=== PATIENT | female | born 1985 | race Caucasian/White ===

== ENCOUNTER 2016-08-16 11:16 | Emergency (ER) | payer OTHER ==
[~2016-08-16] VITALS: Ht 157.4 cm; Wt 61.2 kg
[~2016-08-16 11:16] MED LIST: AMOXICILLIN500 M2 PO; AMOXIL500 MG PO; AVPAK AZITHROM250 M1 PO; BACTRIM DS 8001 TA1 PO; CLARITIN10 MG PO; DEBROX15 ML OT; FLONASE0.05 MG/AC NS; MEDROL DOSEPAK4 MG PO; MIRALAX POWDER17 G1 PO; NEIGHBOR P PO; ROBITUSSIN-AC 160 ML PO; ZITHROMAX Z PA250 MG PO; ZOFRAN ODT4 MG SL; ZOFRAN4 MG PO
[2016-08-16 12:12] LABS: BASO % 0.1 % (0.0-1.0); EOS % 0.3 % (1.0-4.0); HEMATOCRIT 39.8 % (37.0-47.0); HEMOGLOBIN 14.1 g/dl (12.0-16.0); IG # 0.1 10*3/uL (0.0-0.1); LYMPH # 1.5 10*3/uL (1.3-4.4); MEAN CELL VOLUME 99.3 fl (81.0-99.0); MEAN CORPUSCULAR HGB 35.2 pg (27.0-31.0); MEAN CORPUSCULAR HGB CONC 35.4 g/dl (33.0-37.0); MEAN PLATELET VOLUME 10.5 fl (9.6-12.3); MONO # 0.7 10*3/uL (0.1-1.0); NEUT # 11.6 10*3/uL (2.3-7.9); NEUT % 83.1 % (47.0-73.0); PLATELET COUNT AUTOMATED 202 10*3/uL (130-400); RED BLOOD COUNT 4.01 10*6/uL (4.10-5.10); RED CELL DISTRI WIDTH 12.1 % (0-14.5)
[2016-08-16 12:29] LABS: ALBUMIN 3.5 gm/dl (3.1-4.5); ALKALINE PHOSPHATASE 64 U/L (45-117); BILIRUBIN, TOTAL 1.1 mg/dl (0.2-1.0); BUN 8 mg/dl (7-24); CARBON DIOXIDE 25 mmol/L (21-32); CHLORIDE 107 mmol/L (98-107); EST GLOM FILT AFRICAN AMERICAN > 60 ml/min; GLUCOSE 93 mg/dL (65-99); POTASSIUM 4.1 mmol/L (3.5-5.1); SGOT/AST 10 IU/L (3-35); SGPT/ALT 14 U/L (12-78); SODIUM 139 mmol/L (136-145); TOTAL PROTEIN 7.4 gm/dL (6.4-8.2)
[2016-08-16 13:04] LABS: BILIRUBIN NEGATIVE (NEGATIVE); BLOOD TRACE-LYSED (NEGATIVE); CLARITY CLEAR (CLEAR); COLOR YELLOW (YELLOW); GLUCOSE NEGATIVE (NEGATIVE); KETONE NEGATIVE (NEGATIVE); LEUKO ESTERASE 2+ (NEGATIVE); NITRITE NEGATIVE (NEGATIVE); PROTEIN NEGATIVE (NEGATIVE); SPECIFIC GRAVITY <= 1.005 (1.005-1.030); UROBILINOGEN 0.2 E.U./dl (0.2-1.0)
[2016-08-16 13:25] LABS: BACTERIA 1+; URINE REFLEX COMMENT YES (NO); WBC TNTC wbc/hpf (0-5)
[2016-08-16] MEDS ORDERED: PERCOCET 325 MG1 TA7 PO (15:55)
[2016-08-16] MEDS ORDERED: MACROBID100 M1 PO (15:55)
== END 2016-08-16 16:36 | disposition home or self-care (01) ==
LOC: ED 11:16
PROVIDERS: Emergency Medicine
DX: O23.41 Unspecified infection of urinary tract in pregnancy, first trimester (principal); F17.200 Nicotine dependence, unspecified, uncomplicated; Z3A.14 14 weeks gestation of pregnancy

== ENCOUNTER 2016-08-18 12:48 | Emergency (ER) | payer OTHER ==
[~2016-08-18] VITALS: Ht 157.4 cm; Wt 61.2 kg
== END 2016-08-18 14:46 | disposition home or self-care (01) ==
LOC: ED 12:48
DX: O03.9 Complete or unspecified spontaneous abortion without complication (principal); O09.899 Supervision of other high risk pregnancies, unspecified trimester; F17.200 Nicotine dependence, unspecified, uncomplicated

== ENCOUNTER → 2016-08-18 | Outpatient (CLI) | payer OTHER ==
[~2016-08-18] MED LIST changes: +MACROBID100 M1 PO; +PERCOCET 325 MG1 TA7 PO
== END | disposition home or self-care (01) ==
LOC: LAB 11:39
DX: O03.9 Complete or unspecified spontaneous abortion without complication (principal); Z3A.00 Weeks of gestation of pregnancy not specified

== ENCOUNTER → 2016-08-31 | Outpatient (CLI) | payer OTHER | END | disposition home or self-care (01) | LOC: US 14:52 | DX: O03.4 Incomplete spontaneous abortion without complication (principal); R10.31 Right lower quadrant pain; Z3A.00 Weeks of gestation of pregnancy not specified ==

== ENCOUNTER 2017-06-07 17:44 | Emergency (ER) | payer OTHER ==
[~2017-06-07] VITALS: Ht 157.4 cm; Wt 59.0 kg
[2017-06-07] MEDS ORDERED: ALLEGRA-D 24 H1 EACH PO (18:14)
[2017-06-07] MEDS ORDERED: FLONASE ALLERG9.9 ML NAS (18:14)
== END 2017-06-07 18:14 | disposition home or self-care (01) ==
LOC: ED 17:44
DX: J32.9 Chronic sinusitis, unspecified (principal); F17.200 Nicotine dependence, unspecified, uncomplicated

== ENCOUNTER 2017-08-13 17:30 | Emergency (ER) | payer OTHER ==
[~2017-08-13] VITALS: Wt 59.0 kg
[~2017-08-13 17:30] MED LIST changes: +ALLEGRA-D 24 H1 EACH PO; +FLONASE ALLERG9.9 ML NAS
[2017-08-13] MEDS ORDERED: TESSALON PERLE100 MG PO (18:25)
[2017-08-13] MEDS ORDERED: ZITHROMAX250 MG PO (18:25)
== END 2017-08-13 18:16 | disposition home or self-care (01) ==
LOC: ED 17:30
DX: J40 Bronchitis, not specified as acute or chronic (principal); F17.200 Nicotine dependence, unspecified, uncomplicated

== ENCOUNTER 2018-10-17 17:44 | Emergency (ER) | payer OTHER ==
[~2018-10-17] VITALS: Ht 157.4 cm; Wt 73.9 kg
[~2018-10-17 17:44] MED LIST changes: +TESSALON PERLE100 MG PO; +ZITHROMAX250 MG PO
[2018-10-17] MEDS ORDERED: ALLEGRA-D 24 H1 EACH PO (19:16)
[2018-10-17] MEDS ORDERED: PROAIR HFA8.5 GM INH (19:16)
[2018-10-17] MEDS ORDERED: TESSALON PERLE100 M1 PO (19:16)
[2018-11-13] MEDS ORDERED: TESSALON PERLE100 M1 PO (17:00)
[2018-11-13] MEDS ORDERED: FLONASE ALLERG9.9 ML NAS (17:00)
[2018-11-13] MEDS ORDERED: OMNICEF300 MG PO (17:00)
== END 2018-10-17 19:27 | disposition home or self-care (01) ==
LOC: ED 17:44
DX: J06.9 Acute upper respiratory infection, unspecified (principal); F17.200 Nicotine dependence, unspecified, uncomplicated; Z79.2 Long term (current) use of antibiotics; Z79.899 Other long term (current) drug therapy

== ENCOUNTER 2021-02-07 11:08 | Emergency (ER) | payer OTHER ==
[~2021-02-07] VITALS: Ht 157.4 cm; Wt 72.6 kg
[~2021-02-07 11:08] MED LIST changes: +OMNICEF300 MG PO; +PROAIR HFA8.5 GM INH; +TESSALON PERLE100 M1 PO
[2021-02-07] MEDS ORDERED: TOBRAMYCIN 5 ML5 M1 OPH (11:34)
== END 2021-02-07 11:55 | disposition home or self-care (01) ==
LOC: ED 11:08
DX: S05.01XA Injury of conjunctiva and corneal abrasion without foreign body, right eye, initial encounter (principal); H02.821 Cysts of right upper eyelid; Z79.899 Other long term (current) drug therapy; X58.XXXA Exposure to other specified factors, initial encounter; Y93.89 Activity, other specified; Y92.89 Other specified places as the place of occurrence of the external cause; Y99.8 Other external cause status

== ENCOUNTER 2022-06-10 13:21 | Emergency (ER) | payer OTHER ==
[~2022-06-10] VITALS: Wt 74.8 kg
[~2022-06-10 13:21] MED LIST changes: +TOBRAMYCIN 5 ML5 M1 OPH
== END 2022-06-10 15:57 | disposition home or self-care (01) ==
LOC: ED 13:21
DX: J02.9 Acute pharyngitis, unspecified (principal)

== ENCOUNTER 2022-10-01 11:03 | Emergency (ER) | payer OTHER ==
[~2022-10-01] VITALS: Ht 157.4 cm; Wt 74.8 kg
[2022-10-01] MEDS ORDERED: AMOXICILLIN875 MG PO (11:27)
[2022-10-01 12:05] LABS: BASO % 0.3 % (0.0-1.0); EOS # 0.1 10*3/uL (0.0-0.4); EOS % 0.9 % (1.0-4.0); HEMATOCRIT 41.8 % (37.0-47.0); LYMPH # 2.3 10*3/uL (1.3-4.4); LYMPH % 24.4 % (27.0-41.0); MEAN CELL VOLUME 95.7 fl (81.0-99.0); MEAN CORPUSCULAR HGB CONC 34.4 g/dl (33.0-37.0); MONO # 0.5 10*3/uL (0.1-1.0); MONO % 5.5 % (3.0-9.0); NEUT # 6.3 10*3/uL (2.3-7.9); NEUT % 68.6 % (47.0-73.0); PLATELET COUNT AUTOMATED 300 10*3/uL (130-400); RED BLOOD COUNT 4.37 10*6/uL (4.10-5.10); WHITE BLOOD COUNT 9.2 10*3/uL (4.8-10.8)
[2022-10-01 12:23] LABS: ALKALINE PHOSPHATASE 57 U/L (46-116); BUN 10 mg/dl (9-23); CHLORIDE 107 mmol/L (98-107); POTASSIUM 3.8 mmol/L (3.4-5.1); SGPT/ALT 11 U/L (10-49); TOTAL PROTEIN 6.9 gm/dL (6.0-8.0)
== END 2022-10-01 12:28 | disposition home or self-care (01) ==
LOC: ED 11:03
PROVIDERS: Nurse Practitioner Family
DX: H66.92 Otitis media, unspecified, left ear (principal); R10.12 Left upper quadrant pain; R51.9 Headache, unspecified

== ENCOUNTER 2024-08-06 11:32 | Emergency (ER) | payer OTHER ==
[~2024-08-06] VITALS: Ht 157.4 cm; Wt 86.2 kg
[~2024-08-06 11:32] MED LIST changes: +AMOXICILLIN875 MG PO
[2024-08-06 12:24] LABS: BASO # 0.1 10*3/uL (0.0-0.1); BASO % 0.4 % (0.0-1.0); EOS % 0.2 % (1.0-4.0); HEMATOCRIT 40.7 % (37.0-47.0); MEAN CORPUSCULAR HGB CONC 34.4 g/dl (33.0-37.0); MEAN PLATELET VOLUME 10.5 fl (9.6-12.3); MONO # 0.8 10*3/uL (0.1-1.0); MONO % 5.8 % (3.0-9.0); NEUT # 11.7 10*3/uL (2.3-7.9); NEUT % 86.3 % (47.0-73.0); PLATELET COUNT AUTOMATED 279 10*3/uL (130-400); RED BLOOD COUNT 4.24 10*6/uL (4.10-5.10); WHITE BLOOD COUNT 13.5 10*3/uL (4.8-10.8)
[2024-08-06 12:43] LABS: BUN 14 mg/dl (9-23); CHLORIDE 104 mmol/L (98-107); POTASSIUM 3.8 mmol/L (3.4-5.1)
== END 2024-08-06 13:07 | disposition home or self-care (01) ==
LOC: ED 11:32
PROVIDERS: Nurse Practitioner Family
DX: U07.1 COVID-19 (principal); H92.03 Otalgia, bilateral

== ENCOUNTER 2025-02-04 10:12 | Emergency (ER) | payer OTHER ==
[~2025-02-04] VITALS: Ht 157.4 cm; Wt 86.2 kg
== END 2025-02-04 12:12 | disposition home or self-care (01) ==
LOC: ED 10:12
DX: B34.9 Viral infection, unspecified (principal); H92.03 Otalgia, bilateral